=== PATIENT | male | born 1950 | race Caucasian/White ===

== ENCOUNTER 2019-08-03 16:16 | Inpatient (IN) | payer MEDICARE, OTHER ==
[~2019-08-03] VITALS: Ht 185.4 cm; Wt 113.6 kg
[~2019-08-03 16:16] MED LIST: ANUSOL-HC25 MG RC; CELEXA20 MG PO; FLAGYL500 MG PO; FLUTICASONE PRO16 GM NS; HYDROCHLOROTH12.5 M1 PO; MIRALAX17 GM PO; NEPRO; NORCO 10/325 TA1 TA1 PO; PREVACID30 MG PO; ROCEPHIN IV; ZYLOPRIM100 MG PO
[2019-08-03 17:21] LABS: BASOPHILS 0.5 % (0-2); EOSINOPHILS 1.9 % (0-7); HEMATOCRIT 41.8 % (42.0-54.0); HEMOGLOBIN 13.9 g/dL (13.5-17.5); IMMATURE GRANULOCYTES 0.2 % (0-5); LYMPHOCYTES 13.1 % (15-50); MCH 29.3 pg (26.0-34.0); MCHC 33.3 g/dL (31.0-37.0); MEAN PLATELET VOLUME 11.5 fL (7.4-10.4); MONOCYTES 4.6 % (2-11); NEUTROPHILS 79.7 % (40-80); RBC 4.75 10x6/uL (4.20-6.10); RDW 13.6 % (11.5-14.5); WBC 11.4 10x3/uL (4.8-10.8)
[2019-08-03 17:31] LABS: ANION GAP 11.9 mmol/L (8-16); APTT 26.4 SECONDS (22.8-39.4); CALCIUM 8.7 mg/dL (8.5-10.1); CARBON DIOXIDE 27.5 mmol/L (21.0-32.0); CREATININE - SERUM 1.6 mg/dL (0.6-1.3); POTASSIUM - SERUM 4.4 mmol/L (3.5-5.1); PROTIME 13.1 SECONDS (11.6-15.0)
[2019-08-03 17:38] LABS: ALBUMIN 3.7 g/dL (3.4-5.0); BILIRUBIN - TOTAL 0.49 mg/dL (0.2-1.3); PROTEIN - SERUM 8.4 g/dL (6.4-8.2)
[2019-08-03 17:48] LABS: PLATELET COUNT 208 10x3/uL (130-400)
[2019-08-03 22:12] VITALS: BP 157/75
[2019-08-03 22:30] VITALS: BP 152/68
--- NOTE | 2019-08-03 22:30 | NUR ---
PT BROUGHT TO FLOOR FROM SURGERY, AOX4. SLIGHTLY SLEEPY. STATES NO PAIN IN LEFT ARM UNLESS MOVING AT THE ELBOW. CAP REFILL <3, PT ABLE TO WIGGLE FINGERS GOOD WITH NO PAIN. O2 2L/NC. VSS. AT BEDSIDE. IV RIGHT HAND INFUSING NS @ 50. PT VOIDED 300ML INTO URINAL. SCDS ON. DENIES NEEDS AT THIS TIME. CL IN REACH, WILL CTM
[2019-08-03 22:45] VITALS: BP 148/78
[2019-08-03 23:00] VITALS: BP 143/80
[2019-08-03 23:30] VITALS: BP 139/76
[2019-08-04] VITALS: BP 139/71
[2019-08-04 00:43] VITALS: Ht 185.4 cm; Wt 113.6 kg
[2019-08-04 01:00] VITALS: BP 149/74
[2019-08-04 02:00] VITALS: BP 141/77
[2019-08-04 03:00] VITALS: BP 145/70
[2019-08-04 04:00] VITALS: BP 169/72
[2019-08-04 06:27] LABS: BASOPHILS 0.1 % (0-2); EOSINOPHILS 0 % (0-7); HEMATOCRIT 39.3 % (42.0-54.0); HEMOGLOBIN 12.5 g/dL (13.5-17.5); IMMATURE GRANULOCYTES 0.2 % (0-5); MCH 28.5 pg (26.0-34.0); MCHC 31.8 g/dL (31.0-37.0); MCV 89.5 fL (80.0-100.0); MEAN PLATELET VOLUME 11.5 fL (7.4-10.4); MONOCYTES 3.5 % (2-11); NEUTROPHILS 88.2 % (40-80); PLATELET COUNT 178 10x3/uL (130-400); RBC 4.39 10x6/uL (4.20-6.10); RDW 13.6 % (11.5-14.5); WBC 9.6 10x3/uL (4.8-10.8)
[2019-08-04 06:44] LABS: ALBUMIN 3.2 g/dL (3.4-5.0); ANION GAP 13.5 mmol/L (8-16); BILIRUBIN - TOTAL 0.44 mg/dL (0.2-1.3); CALCIUM 8.2 mg/dL (8.5-10.1); CARBON DIOXIDE 27.8 mmol/L (21.0-32.0); CREATININE - SERUM 1.6 mg/dL (0.6-1.3); MAGNESIUM - SERUM 1.8 mg/dL (1.8-2.4); PHOSPHOROUS 3.9 mg/dL (2.5-4.9); POTASSIUM - SERUM 4.3 mmol/L (3.5-5.1); PROTEIN - SERUM 7.5 g/dL (6.4-8.2)
--- NOTE | 2019-08-04 08:19 | OP ---
PATIENT NAME: JUAN COTTO MEDICAL RECORD: [id number] :50 LOCATION:D. D.1205 ADMISSION DATE:08/03/19 SURGEON: KANG VALENCIA DO DATE OF OPERATION: 08/03/2019 PROCEDURE PERFORMED: Left elbow open reduction internal fixation with radial head arthroplasty and lateral ligament repair. PREOPERATIVE DIAGNOSIS: Left elbow olecranon and radial head neck fractures and dislocation. POSTOPERATIVE DIAGNOSIS: Left elbow olecranon and radial head neck fractures and dislocation. INDICATIONS: Mr. Cotto is a 68-year-old male who fell down 10-12 steps today onto his left elbow. He sustained a fracture dislocation of his left elbow. He was seen at primary care's office and then sent to my clinic. He was then sent to the ER and I saw him there and we got a CT, originally did not see the radial neck fracture, but on CT, it was noted. I informed him that we do need to fix this and get it reduced and then I would probably do radial head arthroplasty with ORIF of the olecranon and may have to repair his lateral ligaments. He was okay with that and was aware of the risks including infection, bleeding, malunion, nonunion, continued elbow instability, continued pain, loss of range of motion, damage to nerves and vessels in the area including the median nerve, the ulnar nerve, and radial nerve and loss of function of that arm. He was okay with all those and he signed the consent. SURGEON: Kang Valencia DO DESCRIPTION OF PROCEDURE: The patient was given a block by anesthesia in the preoperative area and taken to the operative suite, laid in supine position, given 2 grams Ancef and general anesthetic and intubated. We then moved him in the right lateral decubitus position with axillary roll and a pillow put between his knees and positioned well with a beanbag. We then prepped and draped the left upper extremity. A timeout was performed. Everyone was in agreeance with the correct side, site, patient and procedure. We then proceeded to zoraida out the incision and an Esmarch was used to exsanguinate the left upper extremity. The tourniquet was inflated to 250 mmHg. It was up for 87 minutes. After the tourniquet was inflated, careful dissection was made down to the olecranon fracture. This was moved out of the way and the anconeus muscle had been ripped off the ulna, exposing the radial head, which was fractured right at the neck. I removed the radial head. The hardware had been fractured at the neck and then cleaned it up and put trialed implants. Once we got to the correct one which is a 9 x 30 radial stem and a 10 mm x 22 mm radial head, size of his radial head. The elbow reduced and then put a plate on the olecranon once it was in good position, fixed it distally and then put 4 screws in proximally and 2 more locking screws in the shaft. I then tested the elbow and it was quite unstable noting the lateral ligaments had been torn. I then repaired the anconeus and dissected down to the lateral epicondyle of the humerus and put a 2.5 JuggerKnot double-loaded anchor in and then repaired with a Doc-Ritesh type stitch through the lateral ligaments closing down nicely and then tested stability and was very stable. The elbow was in pronation, supination, flexion, and extension. There was no instability. This is noted on x-ray as well. We then let the tourniquet down, irrigated out the incision, and closed the incision with 2-0 Vicryl in inverted interrupted fashion and placed a ZipLine on the incision. I then OPERATIVE REPORT [id number] JUAN COTTO placed Adaptic, 4 x 4s, ABD, cast padding and a 4 x 30 splint on the posterior arm and secured in place with an Paulino wrap. He was then awakened and taken to recovery in stable condition. Blood loss approximately 100 mL. COMPLICATIONS: None. TRANSINT:[id number] Voice Confirmation ID: [id number] DOCUMENT ID: [id number] KANG VALENCIA DO at 0819 CC: [id number] DICTATION DATE: 08/03/192132 BEVEL GEAR GENERATOR OPERATOR: 08/04/19 0536 [facility] [place] [id number] [place] [id number]
[2019-08-04 09:20] VITALS: BP 182/75
--- NOTE | 2019-08-04 10:27 | NUR ---
PT ALERT X 4. BREATH SOUNDS CLEAR BILAT, 2L O2 PER NC. SLING TO LEFT ARM, DRESSING CDI. IV TO RIGHT HAND, PATENT, DRESSING CDI. SCD'S IN USE. FAMILY AT BEDSIDE. BED LOW, CALL LIGHT IN REACH. NO OTHER NEEDS AT THIS TIME.
[2019-08-04] MEDS ORDERED: KEFLEX500 MG PO (10:33)
[2019-08-04] MEDS ORDERED: OXYCODONE HCL5 M1 PO (10:33)
--- NOTE | 2019-08-04 12:25 | MORECARE ---
CASE MANAGEMENT DISCHARGE SUMMARY PATIENT: JUAN COTTO UNIT: [id number] ADM DATE: 08/03/19 AGE: 68 : 50 SEX: M ROOM/BED: D.1205 AUTHOR: NAYA,DOC PHYSICIAN: REFERRING PHYSICIAN: ELO CHOWDARY MD DATE OF SERVICE: 08/04/19 Discharge Plan Patient Name: JUAN COTTO Facility: [facility]:[place] : 1950 Planned Disposition: Home or Self Care Anticipated Discharge Date: 08/04/19 Discharge Date: Expected LOS: 1 Initial Reviewer: [email or web address] Initial Review Date: 08/03/2019 Generated: 08/04/19 1:25 pm Comments DCP- Discharge Planning Updated by [email or web address]: Pema Brown on 08/04/19 11:[address] Plan: Return home with spouse. No needs voiced. CM met with patient to discuss initial discharge planning. Patient is in agreement to proceed with the assessment with his present. Patient reports that he lives at home independently with his spouse. Patient is alert/oriented. Stairs/steps: 8 w/rails. PCP: Dr. Johnston. Pharmacy: [facility]. Patient states they have been able to obtain all of their prescribed medications. HHS: No. DME: No. Patient gives permission to speak with family members/care givers. Emergency contact: Sana Cotto () [phone]. 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 CM discussed the availability of HH, Rehab, DME services. Patient denies the need for additional services at this time and feels safe returning to previous environment. Patient denies being hospitalized within the past 30 days. 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 Transportation at time of discharge: Sanadayana Cotto. CM will assist PRN with DC needs/plans. DCPIA - Discharge Planning Initial Assessment Updated by [email or web address]: Pema Brown on 08/04/19 12:23 pm * Is the patient Alert and Oriented? Yes * How many steps to enter\exit or inside your home? 8 w/rails * PCP Dr. Johnston * Pharmacy [facility] * Preadmission Environment Home with Family * ADLs Independent * Equipment None * Other Equipment NA * List name and contact numbers for known caregivers / representatives who currently or will assist patient after discharge: Sana Cotto [phone] () * Verbal permission to speak to the caregivers and representatives has been obtained from the patient. Yes * Community resources currently utilized None * Please name any agencies selected above. NA * Additional services required to return to the preadmission environment? No * Can the patient safely return to the preadmission environment? Yes * Has this patient been hospitalized within the prior 30 days at any hospital? No Patient Name: JUAN COTTO Page [phone] at 1225 All edits/amendments must be made on the electronic document DICTATION DATE: 08/04/191224 MED CARE MANAGER: DINAH 08/04/191224 RPT#: [id number] DC DATE: STATUS: ADM IN [facility] [address] [place] [address] END OF REPORT
--- NOTE | 2019-08-04 18:18 | MORECARE ---
CASE MANAGEMENT DISCHARGE SUMMARY PATIENT: JUAN COTTO UNIT: [id number] ADM DATE: 08/03/19 AGE: 68 : 50 SEX: M ROOM/BED: D.1205 AUTHOR: NAYA,DOC PHYSICIAN: REFERRING PHYSICIAN: ELO CHOWDARY MD DATE OF SERVICE: 08/04/19 Discharge Plan Patient Name: JUAN COTTO Facility: [facility]:[place] : 1950 Planned Disposition: Home or Self Care Anticipated Discharge Date: 08/04/19 Discharge Date: Expected LOS: 1 Initial Reviewer: [email or web address] Initial Review Date: 08/03/2019 Generated: 08/04/19 7:17 pm Comments DCP- Discharge Planning Updated by [email or web address]: Pema Brown on 08/04/19 11:[address] Plan: Return home with spouse. No needs voiced. CM met with patient to discuss initial discharge planning. Patient is in agreement to proceed with the assessment with his present. Patient reports that he lives at home independently with his spouse. Patient is alert/oriented. Stairs/steps: 8 w/rails. PCP: Dr. Johnston. Pharmacy: [facility]. Patient states they have been able to obtain all of their prescribed medications. HHS: No. DME: No. Patient gives permission to speak with family members/care givers. Emergency contact: Sana Cotto () [phone]. 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 CM discussed the availability of HH, Rehab, DME services. Patient denies the need for additional services at this time and feels safe returning to previous environment. Patient denies being hospitalized within the past 30 days. Patient denies the use of community resources RABBIT FANCIER. Transportation at time of discharge: Sanadayana Cotto. CM will assist PRN with DC needs/plans. DCPIA - Discharge Planning Initial Assessment Updated by [email or web address]: Pema Brown on 08/04/19 12:23 pm * Is the patient Alert and Oriented? Yes * How many steps to enter\exit or inside your home? 8 w/rails * PCP Dr. Johnston * Pharmacy [facility] * Preadmission Environment Home with Family * ADLs Independent * Equipment None * Other Equipment NA * List name and contact numbers for known caregivers / representatives who currently or will assist patient after discharge: Sana Cotto [phone] () * Verbal permission to speak to the caregivers and representatives has been obtained from the patient. Yes * Community resources currently utilized None * Please name any agencies selected above. NA * Additional services required to return to the preadmission environment? No * Can the patient safely return to the preadmission environment? Yes * Has this patient been hospitalized within the prior 30 days at any hospital? No Coverage Notice Reviewer: [email or web address] Meghann Brown Notice Issued Date-Time: 08/04/2019 17:38 Notice Type: IM Discharge Notice Notice Delivered To: Family Member Relationship to Patient: Spouse Radiology Specialist Name: Coleen Cotto Delivery Method: HAND - Hand Delivered Debora Days: Prior Verbal Notification: Recipient Understood Notice: Yes Recipient Signature: Yes Med Rec Note Co-signed by Attending: Coverage Notice Comment: DC IMM delivered and signed by patient's . Original given to and one placed on the chart. Last DP export: 08/04/19 11:25 a Patient Name: JUAN COTTO Page [phone] at 1818 All edits/amendments must be made on the electronic document DICTATION DATE: 08/04/191816 EVENT MGR: DINAH 08/04/191816 RPT#: [id number] DC DATE: STATUS: ADM IN [facility] [address] [place] [address] END OF REPORT
--- NOTE | 2019-08-04 19:24 | NUR ---
DISCHARGE PAPERWORK SIGNED, ALL QUESTIONS ANSWERED. IV TO RIGHT HAND DC'D, TIP INTACT. ESCORTED OUT VIA WHEELCHAIR.
--- NOTE | 2019-08-05 16:37 | MORECARE ---
CASE MANAGEMENT DISCHARGE SUMMARY PATIENT: JUAN COTTO UNIT: [id number] ADM DATE: 08/03/19 AGE: 68 : 50 SEX: M ROOM/BED: D.1205 AUTHOR: NAYA,DOC PHYSICIAN: REFERRING PHYSICIAN: ELO CHOWDARY MD DATE OF SERVICE: 08/05/19 Discharge Plan Patient Name: JUAN COTTO Facility: [facility]:[place] : 1950 Planned Disposition: Home or Self Care Anticipated Discharge Date: 08/04/19 Discharge Date: 08/04/2019 Expected LOS: 1 Initial Reviewer: [email or web address] Initial Review Date: 08/03/2019 Generated: 08/05/19 5:36 pm Comments DCP- Discharge Planning Updated by [email or web address]: Pema Brown on 08/04/19 11:[address] Plan: Return home with spouse. No needs voiced. CM met with patient to discuss initial discharge planning. Patient is in agreement to proceed with the assessment with his present. Patient reports that he lives at home independently with his spouse. Patient is alert/oriented. Stairs/steps: 8 w/rails. PCP: Dr. Johnston. Pharmacy: [facility]. Patient states they have been able to obtain all of their prescribed medications. HHS: No. DME: No. Patient gives permission to speak with family members/care givers. Emergency contact: Sana Cotto () [phone]. 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 CM discussed the availability of HH, Rehab, DME services. Patient denies the need for additional services at this time and feels safe returning to previous environment. Patient denies being hospitalized within the past 30 days. 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 Transportation at time of discharge: Sana Cotto. CM will assist PRN with DC needs/plans. DCPIA - Discharge Planning Initial Assessment Updated by [email or web address]: Pema Brown on 08/04/19 12:23 pm * Is the patient Alert and Oriented? Yes * How many steps to enter\exit or inside your home? 8 w/rails * PCP Dr. Johnston * Pharmacy [facility] * Preadmission Environment Home with Family * ADLs Independent * Equipment None * Other Equipment NA * List name and contact numbers for known caregivers / representatives who currently or will assist patient after discharge: Sana Cotto [phone] () * Verbal permission to speak to the caregivers and representatives has been obtained from the patient. Yes * Community resources currently utilized None * Please name any agencies selected above. NA * Additional services required to return to the preadmission environment? No * Can the patient safely return to the preadmission environment? Yes * Has this patient been hospitalized within the prior 30 days at any hospital? No Coverage Notice Reviewer: [email or web address] Meghann Brown Notice Issued Date-Time: 08/04/2019 17:38 Notice Type: IM Discharge Notice Notice Delivered To: Family Member Relationship to Patient: Spouse [employer] Products Sales Representative Name: Coleen Cotto Delivery Method: HAND - Hand Delivered Debora Days: Prior Verbal Notification: Recipient Understood Notice: Yes Recipient Signature: Yes Med Rec Note Co-signed by Attending: Coverage Notice Comment: DC IMM delivered and signed by patient's . Original given to and one placed on the chart. Last DP export: 08/04/19 5:18 p Patient Name: JUAN COTTO Page [phone] at 1637 All edits/amendments must be made on the electronic document DICTATION DATE: 08/05/191635 MANAGEMENT SME: DINAH 08/05/191635 RPT#: [id number] DC DATE:08/04/19 STATUS: DIS IN [facility] [address] [place] [address] END OF REPORT
== END 2019-08-04 19:25 | disposition home or self-care (01) | DRG 500 ==
LOC: D.ER 16:16 → D.M3 17:04
PROVIDERS: Family Medicine; Orthopaedic Surgery; ADMIT Internal Medicine Nephrology; ATTEND Internal Medicine Nephrology
PROC: 0MQ40ZZ Repair Left Elbow Bursa and Ligament, Open Approach (ICD-10-PCS; 2019-08-03)
PROC: 0PSJ04Z Reposition Left Radius with Internal Fixation Device, Open Approach (ICD-10-PCS; principal; 2019-08-03 13:00)
DX: S52.022A Displaced fracture of olecranon process without intraarticular extension of left ulna, initial encounter for closed fracture (principal); G92 Toxic encephalopathy; N17.9 Acute kidney failure, unspecified; D62 Acute posthemorrhagic anemia; S52.122A Displaced fracture of head of left radius, initial encounter for closed fracture; W10.9XXA Fall (on) (from) unspecified stairs and steps, initial encounter; I10 Essential (primary) hypertension; K21.9 Gastro-esophageal reflux disease without esophagitis; G89.29 Other chronic pain; M54.9 Dorsalgia, unspecified